=== PATIENT | female | born 1960 | race Caucasian/White ===

== ENCOUNTER → 2018-01-04 | Outpatient (CLI) | payer OTHER ==
[~2018-01-04] MED LIST: NORCO 10-325 T1 EACH PO; PRILOSEC 10MG C10 MG PO; SYNTHROID112 MC1 PO
== END ==
LOC: M.RAD 10:00
DX: R91.1 Solitary pulmonary nodule (principal)

== ENCOUNTER → 2018-01-17 | Outpatient (CLI) | payer OTHER | LOC: M.CT 09:13 | DX: R91.1 Solitary pulmonary nodule (principal); R05 Cough ==

== ENCOUNTER 2018-03-06 10:49 | Emergency (ER) | payer BC ==
[~2018-03-06] VITALS: Ht 175.3 cm; Wt 57.8 kg
[2018-03-06 11:05] LABS: URINE BILIRUBIN NEGATIVE (Negative); URINE BLOOD NEGATIVE (Negative); URINE CLARITY CLEAR; URINE COLOR YELLOW; URINE GLUCOSE-RANDOM NEGATIVE (Negative); URINE KETONES NEGATIVE (Negative); URINE LEUKOCYTES-REFLEX TRACE (Negative); URINE NITRITE-REFLEX NEGATIVE (Negative); URINE PROTEIN NEGATIVE (Negative); URINE SPECIFIC GRAVITY <= 1.005 (1.005-1.030)
[2018-03-06] MEDS ORDERED: NORCO 10-325 T1 EACH PO (11:08)
[2018-03-06] MEDS ORDERED: SYNTHROID112 MC1 PO (11:10)
[2018-03-06] MEDS ORDERED: PRILOSEC 10MG C10 MG PO (11:10)
[2018-03-06 11:30] LABS: ABSOLUTE EOSINOPHILS 0.1 thou/uL (0.0-0.7); ABSOLUTE LYMPHOCYTES 0.9 thou/uL (0.8-5.3); ABSOLUTE MONOCYTES 0.4 thou/uL (0.0-1.2); ABSOLUTE NEUTROPHILS 1.8 thou/uL (1.6-8.1); BASOPHILS 1.3 %; EOSINOPHILS 2.5 %; HEMATOCRIT 38.7 % (37.0-47.0); HEMOGLOBIN 13.5 gm/dL (12.0-15.0); LYMPHOCYTES 28.2 %; MCH 32.4 pg (26.0-34.0); MCHC 34.8 g/dL (28.0-37.0); MCV 93.1 fL (80.0-100.0); MONOCYTES 11.9 %; MPV 6.8 fl. (7.2-11.1); NUCLEATED RBCS 0 /100WBC; PLATELET COUNT* 206 thou/uL (150-400); POLYS 56.1 %; RBC 4.16 mil/uL (4.20-5.00); RDW-CV 12.9 % (10.5-14.5); WBC 3.1 thou/uL (4.0-11.0)
[2018-03-06 11:34] LABS: BACTERIA-REFLEX 1-9 Few /HPF (None Seen); CASTS None Seen /LPF (None Seen); CRYSTALS None Seen /LPF (None Seen); MUCUS 0-3 Light strn/LPF (None Seen); SQUAMOUS 0-3 Few /LPF (0-3); URINE RBC 0-2 Rare /HPF (0-2); URINE WBC-REFLEX 0-5 Rare /HPF (0-5)
[2018-03-06 11:34] LABS: ANION GAP 4 mmol/L (7-16); BUN 11 mg/dL (7-18); CALCIUM 8.3 mg/dL (8.5-10.1); CHLORIDE 104 mmol/L (98-107); CO2 33 mmol/L (21-32); CREATININE 0.7 mg/dL (0.6-1.3); GLUCOSE 90 mg/dL (70-99); SODIUM 141 mmol/L (136-145)
[2018-03-06 11:40] LABS: ALKALINE PHOSPHATASE 96 U/L (46-116); LIPASE 107 U/L (73-393); SGOT 24 U/L (15-37); SGPT 30 U/L (30-65); TOTAL BILIRUBIN 0.6 mg/dL (<0.1-1.0); TOTAL PROTEIN 7.2 g/dL (6.4-8.2); TROPONIN-I LEVEL <0.06 ng/mL (<0.06)
[2018-03-06 12:39] VITALS: BP 132/76
--- NOTE | 2018-03-07 11:00 | EKG ---
[place] [address] ELECTROCARDIOGRAM REPORT Name: JOY HOLDER Room: [facility] ([place], [place])Ranjan#: [id number] Admission: 03/06/18 Attend Phys: Discharge: 03/06/18 Date of : 64 Report #: [id number] THIS REPORT FOR: //name// [facility] ED Test Date: 2018-03-06 Test Time: 11:01:30 Pat Name: JOY HOLDER Department: Room: Gender: F Bar Helper: Lily KNOWLES : 1960 Requested By: Zaki Victor Order Number: [id number] MD: Jarrett Patel Measurements Intervals [place] Rate: 72 P: [place]: QRS: 64 QRSD: 142 T: 78 QT: 440 QTc: 482 Interpretive Statements sinus rhythm Baseline wander in lead(s) II No previous ECG available for comparison Electronically Signed On 03-07-2018 11:00:31 CDT by Jarrett Patel [email or web address] <ELECTRONICALLY SIGNED> By: Jarrett Patel MD, [facility] 03/07/18 1100 1101 1101 Jarrett Patel MD, FACC /EPI
== END 2018-03-06 12:41 | disposition home or self-care (01) ==
LOC: M.ERS 10:49
PROVIDERS: Family Medicine
DX: R10.32 Left lower quadrant pain (principal); R19.7 Diarrhea, unspecified; E89.0 Postprocedural hypothyroidism; Z90.710 Acquired absence of both cervix and uterus; Z85.41 Personal history of malignant neoplasm of cervix uteri

== ENCOUNTER → 2018-12-19 | Outpatient (CLI) | payer OTHER | LOC: M.MRI 08:00 | DX: N28.1 Cyst of kidney, acquired (principal); C53.0 Malignant neoplasm of endocervix; D12.2 Benign neoplasm of ascending colon; R10.31 Right lower quadrant pain; R10.9 Unspecified abdominal pain; R30.0 Dysuria; R10.2 Pelvic and perineal pain; Z79.899 Other long term (current) drug therapy; Z90.49 Acquired absence of other specified parts of digestive tract; Z90.710 Acquired absence of both cervix and uterus; Z87.891 Personal history of nicotine dependence ==